=== PATIENT | male | born 2005 | race Caucasian/White ===

== ENCOUNTER 2025-05-29 06:47 | Outpatient (RCR) | payer MEDICARE, SELFPAY | END 2025-05-29 23:59 | disposition home or self-care (01) | LOC: RPT 06:47 | PROVIDERS: ATTENDING PHYSICIAN Orthopaedic Surgery; FAMILY PHYSICIAN Pediatrics | DX: M54.59 Other low back pain (principal) | CPT/HCPCS: 97110; 97112; 97162 ==

== ENCOUNTER 2025-06-06 10:18 | Outpatient (RCR) | payer MEDICARE, SELFPAY | END 2025-06-06 23:59 | disposition home or self-care (01) | LOC: RPT 10:18 | PROVIDERS: ATTENDING PHYSICIAN Orthopaedic Surgery; FAMILY PHYSICIAN Pediatrics | DX: M54.59 Other low back pain (principal); Z73.6 Limitation of activities due to disability | CPT/HCPCS: 97110; 97535 ==